=== PATIENT | male | born 1940 | race Caucasian/White ===

== ENCOUNTER 2022-07-20 10:29 | Day surgery (SDC) | payer MEDICARE, BC ==
[2022-07-13 10:49] LABS: CLARITY,URINE CLEAR (Clear); COLOR,URINE YELLOW (Yellow); GLUCOSE, URINE NEGATIVE (Neg); KETONES,URINE NEGATIVE (Neg); LEUKOCYTE ESTERASE ,URINE NEGATIVE (Neg); NITRITES, URINE NEGATIVE (Neg); OCCULT BLOOD,URINE NEGATIVE (Neg); PROTEIN,URINE NEGATIVE (Neg); UROBILINOGEN,URINE 0.2 E.U/dL (0.2-1.0)
[2022-07-13 10:50] LABS: BASOPHILS % (AUTO) 0.6 % (0-1); EOSINOPHILS # (AUTO) 0.3 X10'3 (0-0.9); EOSINOPHILS % (AUTO) 4.5 % (0-6); LYMPHOCYTES # (AUTO) 1.3 X10'3 (1.1-4.8); LYMPHOCYTES % (AUTO) 22.3 % (21-51); MEAN CORPUSCULAR HEMOGLOBIN 31.8 PG (27.0-31.0); MEAN CORPUSCULAR HGB CONC 34.2 g/dL (33.0-36.5); MEAN CORPUSCULAR VOLUME 93.1 FL (78-98); MEAN PLATELET VOLUME 7.2 FL (7.4-10.4); MONOCYTES # (AUTO) 0.7 X10'3 (0-0.9); MONOCYTES % (AUTO) 10.9 % (2-12); NEUTROPHILS # (AUTO) 3.7 X10'3 (1.8-7.7); NEUTROPHILS % (AUTO) 61.7 % (42-75); PRE OP HEMATOCRIT 41.3 % (42.0-52.0); PRE OP HEMOGLOBIN 14.1 g/dL (14.0-17.9); PRE OP PLATELET COUNT 287 X10'3 (140-440); RED BLOOD COUNT 4.43 X10'6 (4.70-6.10); RED CELL DISTRIBUTION WIDTH 13.3 % (11.5-14.5)
[2022-07-13 10:56] LABS: UA COLLECTION TYPE CLN CATCH MIDSTREAM
[2022-07-13 10:58] LABS: ALBUMIN 3.9 G/DL (3.4-5.0); ALBUMIN/GLOBULIN RATIO 1.3 (1.1-1.5); ALKALINE PHOSPHATASE 74 IU/L (46-116); BLOOD UREA NITROGEN 14 MG/DL (7-18); BUN/CREATININE RATIO 14.6 (5.4-32.0); CALCIUM 8.7 MG/DL (8.5-10.1); CHLORIDE 101 MMOL/L (99-107); CREATININE 0.96 MG/DL (0.60-1.10); PRE OP ALT 23 U/L (30-65); PRE OP AST 21 U/L (10-37); PRE OP BILIRUB, TOTAL 0.9 MG/DL (0.0-1.0); PRE OP GLUCOSE 103 MG/DL (70-104); PRE OP POTASSIUM 4.3 MMOL/L (3.4-5.1); TOTAL CARBON DIOXIDE 27.5 MMOL/L (24-32); eGFR 75 ML/MIN
[2022-07-13 11:04] LABS: PRE OP ANION GAP 7 (8-16); PRE OP SODIUM 135 MMOL/L (135-145)
[2022-07-20] VITALS (21 sets, daily range): BP systolic 104–148; BP diastolic 46–85
[~2022-07-20] VITALS: Ht 190.5 cm; Wt 82.0 kg
[~2022-07-20 10:29] MED LIST: LORA10TA65 PO; cefazolin 2gm/D5W 100mL 100 ML IV ONE; famotidine 20mg tablet PO ONE; ringers solution, lacted 1,000 ML IV SCH
[2022-07-20] MEDS ORDERED: BUPIVAcaine 0.5% inj/PF 30 ML ONE (13:01)
[2022-07-20] MEDS ORDERED: acetaminophen 1,000mg/100ml IV 100 ML IV PRN (13:35)
[2022-07-20] MEDS ORDERED: ondansetron/PF 4mg/2ml inj IV PRN (13:35)
[2022-07-20] MEDS ORDERED: ketorolac tromethamine 15mg/ml inj. IV ONE (13:35)
[2022-07-20] MEDS ORDERED: meperidine/PF 25mg/ml syringe IV PRN ×3 (13:35)
[2022-07-20] MEDS ORDERED: hydrALAZINE 20mg/ml inj. IV PRN (13:35)
[2022-07-20] MEDS ORDERED: labetalol 20mg/4ml (5mg/ml) syringe IV PRN (13:35)
[2022-07-20] MEDS ORDERED: morphine 2 MG/ML inj. syringe IV PRN (13:35)
[2022-07-20] MEDS ORDERED: proCHLORperazine 10 MG/2 ml inj IV PRN (13:35)
[2022-07-20] MEDS ORDERED: ringers solution, lacted 1,000 ML IV SCH (13:35)
[2022-07-20] MEDS ORDERED: morphine 4 MG/ML inj SYRINge IV PRN (13:35)
[2022-07-20] MEDS ORDERED: sevoflurane 250ml liquid IH ONE (13:58)
[2022-07-20] MEDS ORDERED: fentaNYL /PF 50mcg/ml 5ml ampule ONE (14:05)
[2022-07-20] MEDS ORDERED: midazolam 1 mg/ML 2ml injection ONE (14:05)
[2022-07-20] MEDS ORDERED: ondansetron/PF 4mg/2ml inj ONE (14:30)
[2022-07-20] MEDS ORDERED: propofol inj 20 ML IV ONE (14:30)
[2022-07-20] MEDS ORDERED: dexamethasone sod phosphate 4mg/ml inj. ONE (14:30)
[2022-07-20] MEDS ORDERED: rocuronium 10mg/ml inj IV ONE (14:30)
[2022-07-20] MEDS ORDERED: LIDOcaine 2% (20mg/ml) 5ml vial ONE (14:30)
[2022-07-20] MEDS ORDERED: BUPIVAcaine 0.5% inj/PF 30 ml vial IJ ONE (14:40)
--- NOTE | 2022-07-20 15:30 | NUR ---
Received from OR via [facility], accompanied by Anesthesiologist and report given by RICHI Anesthesiologist. PATIENT WAKING UP, DENIES PAIN, V/S WNL, PIV 20G LEFT WRIST, DERMABONDED LAPS SITES CLOSED C/D/I TO ABDOMEN. Addendum: 07/20/22 at 1601 by Mike Lemos RN Amended: Links added.
--- NOTE | 2022-07-20 18:00 | NUR ---
performed urinary bladder and 20 cc of urine noted. Patient tolerated procedure well.
--- NOTE | 2022-07-20 19:15 | NUR ---
inserted parks catheter with sterile method and 50 cc of clear yellow urine noted. patient tolerated procedure well. no s/s of distress at this time.
--- NOTE | 2022-07-20 19:35 | NUR ---
GANNON CATHETER PLACED PER PROTOCOL WITH NO COMPLICATIONS DUE TO PATIENT BEING UNABLE TO VOID AND OVER 50CC IN BLADDER SCAN. GOOD OUTPUT OF URINE FROM F/C WITH CLEAR YELLOW URINE. I HAVE DEMONSTRATED F/C CARE AND PATIENT HAS VERBALIZED UNDERSTANDING ON HOME CARE. EDUCATION PACKET GIVEN TO PATIENT WELL FOR F/C MANAGEMENT AND DISCONTINUATION F/C AT HOME. PATIENT AGREES HE WILL CALL DR THOMSON OFFICE IN AM FOR F/C D/C APPT IN OFFICE OR AT HOME. Addendum: 07/20/22 at 1947 by Mike Lemos RN Amended: Links added.
== END 2022-07-20 19:35 | disposition home or self-care (01) ==
LOC: PAS 10:29
PROVIDERS: ATTEND Surgery
DX: K40.90 Unilateral inguinal hernia, without obstruction or gangrene, not specified as recurrent (principal); K41.90 Unilateral femoral hernia, without obstruction or gangrene, not specified as recurrent; Z87.891 Personal history of nicotine dependence; Z72.89 Other problems related to lifestyle; Z85.828 Personal history of other malignant neoplasm of skin; Z87.442 Personal history of urinary calculi; Z79.899 Other long term (current) drug therapy; Z98.890 Other specified postprocedural states; Z82.49 Family history of ischemic heart disease and other diseases of the circulatory system; Z81.8 Family history of other mental and behavioral disorders
CPT/HCPCS: 36415; 49650; 80053; 81003; 82948; 85025; 93005; C1781; J0690; J1100; J1885; J2175; J2250; J2405; J2704; J3010; J3490; J7030; J7120; S0020; Z7506; Z7508; Z7512; A4215; A4618